=== PATIENT | male | born 1970 | race Caucasian/White ===

== ENCOUNTER 2018-01-11 09:33 | Emergency (ER) | payer OTHER ==
[~2018-01-11] VITALS: Ht 182.8 cm; Wt 90.7 kg
--- NOTE | ~2018-01-11 | EKG ---
[place], [place] ELECTROCARDIOGRAM REPORT NAME: EVANGELISTA CARDONA UNIT #: [id number] ROOM: DOCTOR: NAKUL TUTTLE MD BIRTHDATE: [birth year] DOS: 01/11/2018 TIME: 0939 hours. Normal sinus rhythm at 99 beats per minute. The tracing is normal. No previous tracing is available for comparison. NAKUL TUTTLE MD CM:EKGRPT:ELECTROCARDIOGRAM REPORT [id number] NAKUL TUTTLE MD
[2018-01-11 09:49] LABS: BASO % 0.4 % (0.0-1.0); EOS # 0.1 10*3/uL (0.0-0.4); EOS % 0.9 % (1.0-4.0); HEMATOCRIT 39.4 % (42.0-52.0); HEMOGLOBIN 12.9 g/dl (14.0-18.0); LYMPH # 2.3 10*3/uL (1.3-4.4); LYMPH % 34.6 % (27.0-41.0); MEAN CELL VOLUME 88.5 fl (80.0-94.0); MEAN CORPUSCULAR HGB CONC 32.7 g/dl (33.0-37.0); MEAN PLATELET VOLUME 9.6 fl (9.6-12.3); MONO # 0.5 10*3/uL (0.1-1.0); MONO % 7.9 % (3.0-9.0); NEUT # 3.8 10*3/uL (2.3-7.9); NEUT % 55.9 % (47.0-73.0); PLATELET COUNT AUTOMATED 269 10*3/uL (130-400); RED BLOOD COUNT 4.45 10*6/uL (4.50-5.90); RED CELL DISTRI WIDTH 12.6 % (0-14.5); WHITE BLOOD COUNT 6.7 10*3/uL (4.8-10.8)
[2018-01-11 09:57] LABS: ACT PARTIAL THROMBO TIME 24.7 SECONDS (20.8-31.5)
[2018-01-11 10:04] LABS: ALBUMIN 4.2 gm/dl (3.1-4.5); ALKALINE PHOSPHATASE 78 U/L (45-117); BUN 21 mg/dl (7-24); CHLORIDE 102 mmol/L (98-107); CREATININE 1.18 mg/dL (0.70-1.30); POTASSIUM 3.5 mmol/L (3.5-5.1); SGOT/AST 12 IU/L (3-35); SGPT/ALT 28 U/L (12-78); SODIUM 138 mmol/L (136-145); TOTAL PROTEIN 8.3 gm/dL (6.4-8.2)
[2018-01-11 10:09] LABS: TROPONIN I < 0.015 ng/ml (<0.045)
== END 2018-01-11 13:12 | disposition home or self-care (01) ==
LOC: ED 09:33
PROVIDERS: Emergency Medicine
DX: R07.89 Other chest pain (principal); M54.2 Cervicalgia; Z88.0 Allergy status to penicillin

== ENCOUNTER 2020-03-21 19:38 | Emergency (ER) | payer BC ==
[~2020-03-21] VITALS: Ht 182.8 cm; Wt 95.3 kg
[2020-03-21 20:31] LABS: BASO % 0.5 % (0.0-1.0); EOS # 0.1 10*3/uL (0.0-0.4); EOS % 1.3 % (1.0-4.0); HEMATOCRIT 37.7 % (42.0-52.0); LYMPH # 2.5 10*3/uL (1.3-4.4); LYMPH % 33.3 % (27.0-41.0); MEAN CELL VOLUME 88.3 fl (80.0-94.0); MEAN CORPUSCULAR HGB 28.6 pg (27.0-31.0); MEAN CORPUSCULAR HGB CONC 32.4 g/dl (33.0-37.0); MONO # 0.7 10*3/uL (0.1-1.0); MONO % 9.7 % (3.0-9.0); NEUT # 4.2 10*3/uL (2.3-7.9); NEUT % 54.9 % (47.0-73.0); PLATELET COUNT AUTOMATED 277 10*3/uL (130-400); RED BLOOD COUNT 4.27 10*6/uL (4.50-5.90); RED CELL DISTRI WIDTH 13.2 % (0-14.5); WHITE BLOOD COUNT 7.6 10*3/uL (4.8-10.8)
[2020-03-21 20:48] LABS: ALBUMIN 3.7 gm/dl (3.1-4.5); ALKALINE PHOSPHATASE 77 U/L (45-117); BUN 16 mg/dl (7-24); CHLORIDE 106 mmol/L (98-107); CREATININE 1.05 mg/dL (0.70-1.30); POTASSIUM 3.3 mmol/L (3.5-5.1); SGOT/AST 17 IU/L (3-35); SGPT/ALT 46 U/L (12-78); SODIUM 139 mmol/L (136-145)
[2020-03-21 20:49] LABS: TROPONIN I < 0.015 ng/ml (<0.045)
== END 2020-03-21 22:12 | disposition home or self-care (01) ==
LOC: ED 19:38
PROVIDERS: Physician Assistant
DX: R03.0 Elevated blood-pressure reading, without diagnosis of hypertension (principal); Z88.0 Allergy status to penicillin

== ENCOUNTER → 2020-04-12 | Outpatient (CLI) | payer BC | END | disposition home or self-care (01) | LOC: US 00:38 | DX: I10 Essential (primary) hypertension (principal); R73.03 Prediabetes ==

== ENCOUNTER 2020-11-03 14:11 | Inpatient (IN) | payer BC ==
[~2020-11-03] VITALS: Ht 182.8 cm; Wt 100.8 kg
[2020-11-03 14:29] VITALS: BP 123/81
[2020-11-03 15:40] LABS: ABG BASE EXCESS 0.1 mmol/L (-2.0-2.0); ARTERIAL BLOOD GAS PH 7.455 (7.35-7.45)
[2020-11-03 15:47] LABS: BASO % 0.1 % (0.0-1.0); HEMATOCRIT 35.7 % (42.0-52.0); LYMPH # 0.9 10*3/uL (1.3-4.4); LYMPH % 10.1 % (27.0-41.0); MEAN CELL VOLUME 88.6 fl (80.0-94.0); MEAN CORPUSCULAR HGB 27.8 pg (27.0-31.0); MEAN CORPUSCULAR HGB CONC 31.4 g/dl (33.0-37.0); MEAN PLATELET VOLUME 9.5 fl (9.6-12.3); MONO # 0.3 10*3/uL (0.1-1.0); NEUT # 7.3 10*3/uL (2.3-7.9); NEUT % 85.2 % (47.0-73.0); PLATELET COUNT AUTOMATED 254 10*3/uL (130-400); RED BLOOD COUNT 4.03 10*6/uL (4.50-5.90); RED CELL DISTRI WIDTH 13.4 % (0-14.5); WHITE BLOOD COUNT 8.6 10*3/uL (4.8-10.8)
[2020-11-03 16:04] LABS: BUN 9 mg/dl (7-24); CHLORIDE 108 mmol/L (98-107); CPK 538 U/L (39-308); CREATININE 1.04 mg/dL (0.70-1.30); LDH 442 U/L (87-241); POTASSIUM 3.1 mmol/L (3.5-5.1); SGOT/AST 42 IU/L (3-35); SGPT/ALT 36 U/L (12-78); SODIUM 139 mmol/L (136-145); TOTAL PROTEIN 7.7 gm/dL (6.4-8.2)
[2020-11-03 16:05] LABS: ALKALINE PHOSPHATASE 69 U/L (45-117); TROPONIN I < 0.015 ng/ml (<0.045)
[2020-11-03 16:40] VITALS: BP 126/80
[2020-11-03 17:20] VITALS: BP 147/87
--- NOTE | 2020-11-03 19:04 | NUR ---
ATTEMPTED TO CONTACT [facility] THEY STATE THEY WILL CALL BACK. DR. HERNANDEZ CONSULTED AND HE STATES TO ENCOURAGE THE PT TO PRONE AND LONG HE DOES NOT NEED ANY MORE OXYGEN HE DOES NOT NEED BIPAP. PT IS RESTING IN ROOM. NO SIGNS OF ACUTE DISTRESS NOTED AT THIS TIME.
[2020-11-03 19:05] VITALS: BP 132/60
[2020-11-03 20:29] VITALS: BP 140/86
--- NOTE | 2020-11-03 20:45 | NUR ---
PT O2 SAT DECREASED TO 89-90% ON 3L O2 NC.PT PLACED ON 5L O2 VIA NC.PT DID STATE HE WAS USING URINAL AT TIME OF DECREASE IN O2 SAT.WILL CONTINUE TO MONITOR.CURRENT O2 SAT ON 5L NC 93%.
--- NOTE | 2020-11-03 20:57 | NUR ---
PT PROVIDED BELONGINGS TO PT OF BLANKET, PILLOW ,CLOTHING AND GATORADE.PT REQUEST $120 FOWLER BE GIVEN TO HIS .ILSA BURT WITNESSED AMOUNT OF $120 GIVEN TO PT .
[2020-11-03 21:05] VITALS: BP 139/82
--- NOTE | 2020-11-03 21:50 | NUR ---
RESPIRATORY AT BEDSIDE TO PLACE PT ON HIGH FLOW CANULA AT THIS TIME.
--- NOTE | 2020-11-03 22:00 | NUR ---
Pt placed on a 10L HFNC. SPO2 94%
--- NOTE | 2020-11-03 22:04 | NUR ---
PT PLACED IN HOSPITAL BED. PT GETS VERY SOB WITH ANY EXURTION PULSE OX DROPPED TO 88% PT STATES HE FEELS VERY SOB. RESP CALLED AND PLACED PT ON A MASK AT 10 LITERS. CALL LIGHT IN REACH .PT HAS NO OTHER COMPLAINTS MELONIE TRUJILLO RN.
--- NOTE | 2020-11-03 23:17 | NUR ---
PTS PULSE OX SHOWING 91% ON 10 LITERS . RATE INCREASED TO 15 LITERS . NOW AT 95% . MELONIE TRUJILLO RN.
[2020-11-04 02:24] VITALS: BP 133/60
--- NOTE | 2020-11-04 04:00 | NUR ---
Pt requiring more than 15L HFNC to stay >94%. ABG's drawn on 15L HFNC and sent to the lab. Pt placed on BiPap 14/10 and FiO2 60%. Encouraged pt to prone in the bed. SpO2 96%. ABG in 2 hours.
[2020-11-04 04:09] LABS: ABG BASE EXCESS -1.1 mmol/L (-2.0-2.0); ARTERIAL BLOOD GAS PH 7.408 (7.35-7.45)
--- NOTE | 2020-11-04 05:00 | NUR ---
PT SLEEPING BIPAP INTACT. MELONIE TRUJILLO RN.
--- NOTE | 2020-11-04 06:00 | NUR ---
PT REMAINS SLEEPING CALL LIGHT IN REACH MELONIE TRUJILLO RN.
[2020-11-04 06:24] LABS: ALBUMIN 2.7 gm/dl (3.1-4.5); ALKALINE PHOSPHATASE 71 U/L (45-117); BUN 13 mg/dl (7-24); CHLORIDE 107 mmol/L (98-107); CHOLESTEROL 123 mg/dL (<200); CREATININE 0.97 mg/dL (0.70-1.30); HDL CHOLESTEROL 45 mg/dl (40-60); LDH 434 U/L (87-241); LDL CHOLESTEROL 56 mg/dL (9-159); POTASSIUM 3.5 mmol/L (3.5-5.1); SGOT/AST 41 IU/L (3-35); SGPT/ALT 37 U/L (12-78); SODIUM 139 mmol/L (136-145); TOTAL PROTEIN 7.8 gm/dL (6.4-8.2); TRIGLYCERIDES 111 mg/dl (<150); VLDL CHOLESTEROL 22 mg/dL (6-40)
[2020-11-04 06:26] LABS: CPK 542 U/L (39-308); FREE T4 1.13 ng/dl (0.76-1.46)
[2020-11-04 06:32] LABS: THYROID STIM HORMONE (HS) 0.156 uIU/ml (0.358-4.75)
[2020-11-04 06:49] LABS: HEMATOCRIT 34.9 % (42.0-52.0); LYMPH # 0.6 10*3/uL (1.3-4.4); LYMPH % 9.2 % (27.0-41.0); MEAN CELL VOLUME 88.1 fl (80.0-94.0); MEAN CORPUSCULAR HGB CONC 31.8 g/dl (33.0-37.0); MEAN PLATELET VOLUME 9.7 fl (9.6-12.3); MONO # 0.3 10*3/uL (0.1-1.0); MONO % 4.3 % (3.0-9.0); NEUT # 5.3 10*3/uL (2.3-7.9); NEUT % 85.9 % (47.0-73.0); PLATELET COUNT AUTOMATED 276 10*3/uL (130-400); RED BLOOD COUNT 3.96 10*6/uL (4.50-5.90); RED CELL DISTRI WIDTH 13.2 % (0-14.5); WHITE BLOOD COUNT 6.2 10*3/uL (4.8-10.8)
[2020-11-04 07:28] LABS: FERRITIN 1095.3 ng/mL (22.0-322.0); VITAMIN D, 25-HYDROXY 11.8 ng/mL (30-100)
[2020-11-04 08:18] LABS: ABG BASE EXCESS -0.7 mmol/L (-2.0-2.0); ARTERIAL BLOOD GAS PH 7.426 (7.35-7.45)
[2020-11-04 08:26] VITALS: BP 120/74
--- NOTE | 2020-11-04 08:40 | NUR ---
THE PATIENT WAS PLACED ON KETTLE CHIPPER PER ORDER. VITALS WERE UPDATED. CALL LIGHT IS ON THE BED BESIDE THE PATIENT
[2020-11-04 09:10] LABS: ACT PARTIAL THROMBO TIME 35.3 SECONDS (20.0-32.1)
[2020-11-04 09:40] VITALS: BP 128/65
[2020-11-04] MEDS ORDERED: IRBESARTAN75 M1 PO (10:15)
[2020-11-04] MEDS ORDERED: SERTRALINE HYDR50 MG PO (10:15)
--- NOTE | 2020-11-04 12:02 | NUR ---
M 42. CALL[address] DR CALHOUN AND HE ORDERED 50% DEXTROSE TO BE GIVEN.
--- NOTE | 2020-11-04 12:07 | NUR ---
THE PATIENT GAVE VERBAL CONSENT TO SPEAK WITH HIS MOTHER. I DID UPDATE HER THEN TRANSFERED THE CALL INTO THE ROOM FOR THE PATIENT TO SPEAK WITH HER
--- NOTE | 2020-11-04 12:14 | NUR ---
RESPIRATORY IS IN THE ROOM WITH THE PATIENT
--- NOTE | 2020-11-04 14:01 | NUR ---
I LET THE PATIENT KNOW HE HAS A ROOM ASSINGMENT AND THAT I AM JUST WAITING FOR THE ROOM TO BE READY
--- NOTE | 2020-11-04 14:13 | NUR ---
I CALLED TO SEE IF ICU WAS READY FOR THE PATIENT. I WAS ADVISED THE PREVIOUS PATIENT JUST LEFT THE ROOM.
--- NOTE | 2020-11-04 15:26 | NUR ---
I CALLED ICU AND WAS ADVISED THAT THEY HAVE CALLED HOUSE KEEPING AND THEY HAVE NOT CLEANED THE ROOM YET. I CALLED THE NURSING SUPERVISIOR AND ASKED IF THERE WAS ANYTHING SHE COULD DO I HAVE HAD A ROOM ASSIGNMENT FOR THIS PATIENT FOR AN HOUR AND 45 MINUTES
--- NOTE | 2020-11-04 16:40 | NUR ---
A 50, admitted to [facility], under the services of EVANGELISTA Garcia DO with a diagnosis of Suspected covid. Chief complaint is shortness of breath. Patient arrived via bed from ER. Monitor applied. Initial assessment completed. Vital signs taken and recorded. EVANGELISTA GARCIA DO notified of admission to the unit. Orders received. See assessment for past medical history, medications and allergies. Patient and/or family oriented to unit. [facility] visitation policy reviewed. Clothing/patient valuable form completed. OSMANI BLACKMAN
--- NOTE | 2020-11-04 18:00 | NUR ---
Patient up to bedside, pulse ox down to 88%. Told patient he has to wear bipap, and he stated can I have just a few minutes he wanted to get a snack and talk to his . I stated I would watch on the monitor and if he began to drop again I would be in to put him on bipap. Patient ate and made his phone call, pulse ox stayed around 93%, patient than proned himself. Pulse ox up to 97%, patient stated until blood gases were drawn and put back on bipap.
--- NOTE | 2020-11-04 19:09 | NUR ---
24 HR chart check completed.
[2020-11-04 20:00] VITALS: BP 150/84
[2020-11-04 21:49] LABS: ABG BASE EXCESS -1.8 mmol/L (-2.0-2.0); ARTERIAL BLOOD GAS PH 7.465 (7.35-7.45)
[2020-11-05] VITALS: BP 144/76
[2020-11-05 04:00] VITALS: BP 114/64
--- NOTE | 2020-11-05 06:06 | NUR ---
Patient has been wearing bipap all night and been in the prone position. When awoke for moring labs patient states he slept good and was hoping for good results on his abg's. Patient has no complaints at this time.
[2020-11-05 06:31] LABS: HEMATOCRIT 34.5 % (42.0-52.0); LYMPH # 0.9 10*3/uL (1.3-4.4); LYMPH % 9.1 % (27.0-41.0); MEAN CORPUSCULAR HGB 27.7 pg (27.0-31.0); MEAN CORPUSCULAR HGB CONC 32.2 g/dl (33.0-37.0); MEAN PLATELET VOLUME 9.7 fl (9.6-12.3); MONO # 0.4 10*3/uL (0.1-1.0); MONO % 4.1 % (3.0-9.0); NEUT # 8.9 10*3/uL (2.3-7.9); NEUT % 86.3 % (47.0-73.0); PLATELET COUNT AUTOMATED 338 10*3/uL (130-400); RED BLOOD COUNT 4.01 10*6/uL (4.50-5.90); RED CELL DISTRI WIDTH 13.2 % (0-14.5); WHITE BLOOD COUNT 10.3 10*3/uL (4.8-10.8)
[2020-11-05 07:01] LABS: CHLORIDE 112 mmol/L (98-107); POTASSIUM 3.6 mmol/L (3.5-5.1); SODIUM 143 mmol/L (136-145)
[2020-11-05 07:07] LABS: ALBUMIN 2.7 gm/dl (3.1-4.5); ALKALINE PHOSPHATASE 71 U/L (45-117); CPK 489 U/L (39-308); CREATININE 0.95 mg/dL (0.70-1.30); LDH 442 U/L (87-241); SGOT/AST 39 IU/L (3-35); SGPT/ALT 37 U/L (12-78); TOTAL PROTEIN 7.6 gm/dL (6.4-8.2)
[2020-11-05 07:45] LABS: BUN 24 mg/dl (7-24)
[2020-11-05 08:00] VITALS: BP 114/64
--- NOTE | 2020-11-05 09:07 | NUR ---
TOOK PT OFF BIPAP TO EAT AND PLACED ON 15LHFNC
[2020-11-05 09:11] LABS: ABG BASE EXCESS -0.8 mmol/L (-2.0-2.0); ARTERIAL BLOOD GAS PH 7.464 (7.35-7.45)
--- NOTE | 2020-11-05 09:38 | NUR ---
Bioanalyst spoke to patient's via phone. Patient lives at home with his . There are 0 steps in the home. Physician: Gonzalo Hastings [facility]acy: [facility] Home health services: none Patient's level of ADLs: INDEPENDENT Patient has working utilities: yes DME: none Follow-up physician's appointment after d/c: will be made by the hospitalist nurse director upon discharge Does patient want to access PORTAL?: no Discharge plan discussed with patient's , Olivia. He lives at home with her. He is independent in his ADLs and ambulation. He works as a nurse. Discussed home health care services and she declines. CM will continue to follow for any discharge planning needs. When medically stable he will be discharged to home. His will provide transportation on discharge. DAVID SCHUSTER
[2020-11-05 12:00] VITALS: BP 130/73
[2020-11-05 14:57] LABS: ABG BASE EXCESS -4.1 mmol/L (-2.0-2.0); ARTERIAL BLOOD GAS PH 7.416 (7.35-7.45)
[2020-11-05 16:00] VITALS: BP 138/80
[2020-11-05 20:00] VITALS: BP 112/73
--- NOTE | 2020-11-05 22:57 | NUR ---
Patient on bipap and proning self. No signs of distress. Patient states he feels good and has no compliants. Will continue to monitor.
[2020-11-06] VITALS: BP 118/60
[2020-11-06 04:00] VITALS: BP 92/63
[2020-11-06 06:26] LABS: BASO % 0.1 % (0.0-1.0); HEMATOCRIT 33.6 % (42.0-52.0); LYMPH # 0.8 10*3/uL (1.3-4.4); LYMPH % 8.2 % (27.0-41.0); MEAN CELL VOLUME 85.5 fl (80.0-94.0); MEAN CORPUSCULAR HGB 27.7 pg (27.0-31.0); MEAN CORPUSCULAR HGB CONC 32.4 g/dl (33.0-37.0); MEAN PLATELET VOLUME 9.6 fl (9.6-12.3); MONO # 0.7 10*3/uL (0.1-1.0); MONO % 7.1 % (3.0-9.0); NEUT # 8.2 10*3/uL (2.3-7.9); PLATELET COUNT AUTOMATED 369 10*3/uL (130-400); RED BLOOD COUNT 3.93 10*6/uL (4.50-5.90); RED CELL DISTRI WIDTH 13.2 % (0-14.5); WHITE BLOOD COUNT 9.8 10*3/uL (4.8-10.8)
[2020-11-06 06:40] LABS: ALKALINE PHOSPHATASE 73 U/L (45-117); BUN 33 mg/dl (7-24); CHLORIDE 113 mmol/L (98-107); CPK 483 U/L (39-308); CREATININE 1.08 mg/dL (0.70-1.30); LDH 452 U/L (87-241); POTASSIUM 4.4 mmol/L (3.5-5.1); SGOT/AST 54 IU/L (3-35); SGPT/ALT 59 U/L (12-78); SODIUM 143 mmol/L (136-145); TOTAL PROTEIN 7.5 gm/dL (6.4-8.2)
[2020-11-06 08:00] VITALS: BP 105/72
[2020-11-06 09:15] LABS: ARTERIAL BLOOD GAS PH 7.459 (7.35-7.45)
--- NOTE | 2020-11-06 10:50 | NUR ---
Awake , alert and oriented. Mostly self proning. Discussed covid care. pt. expressed interest and is very compliant w/ proning. OFF bi-Pap for meals only.
[2020-11-06 12:00] VITALS: BP 100/80
[2020-11-06 16:00] VITALS: BP 123/84
[2020-11-06 16:12] LABS: ABG BASE EXCESS -2.5 mmol/L (-2.0-2.0); ARTERIAL BLOOD GAS PH 7.41 (7.35-7.45)
--- NOTE | 2020-11-06 18:07 | NUR ---
IV leaking at site. Dc'd and re-started to [facility]
[2020-11-06 20:00] VITALS: BP 106/62
[2020-11-07] VITALS: BP 118/71
[2020-11-07 04:00] VITALS: BP 100/60
[2020-11-07 06:30] LABS: HEMATOCRIT 33.9 % (42.0-52.0); LYMPH # 0.9 10*3/uL (1.3-4.4); LYMPH % 11.3 % (27.0-41.0); MEAN CELL VOLUME 86.3 fl (80.0-94.0); MEAN CORPUSCULAR HGB 27.5 pg (27.0-31.0); MEAN CORPUSCULAR HGB CONC 31.9 g/dl (33.0-37.0); MEAN PLATELET VOLUME 9.5 fl (9.6-12.3); MONO # 0.4 10*3/uL (0.1-1.0); NEUT # 6.7 10*3/uL (2.3-7.9); NEUT % 83.5 % (47.0-73.0); PLATELET COUNT AUTOMATED 388 10*3/uL (130-400); RED BLOOD COUNT 3.93 10*6/uL (4.50-5.90); WHITE BLOOD COUNT 8.1 10*3/uL (4.8-10.8)
[2020-11-07 06:46] LABS: ALBUMIN 2.8 gm/dl (3.1-4.5); BUN 35 mg/dl (7-24); CHLORIDE 111 mmol/L (98-107); CREATININE 0.91 mg/dL (0.70-1.30); POTASSIUM 4.3 mmol/L (3.5-5.1); SGOT/AST 171 IU/L (3-35); SGPT/ALT 285 U/L (12-78); SODIUM 141 mmol/L (136-145); TOTAL PROTEIN 6.8 gm/dL (6.4-8.2)
[2020-11-07 06:49] LABS: ALKALINE PHOSPHATASE 99 U/L (45-117); LDH 524 U/L (87-241)
[2020-11-07 08:00] VITALS: BP 110/67
[2020-11-07 08:19] LABS: ABG BASE EXCESS -0.4 mmol/L (-2.0-2.0); ARTERIAL BLOOD GAS PH 7.447 (7.35-7.45)
--- NOTE | 2020-11-07 08:34 | NUR ---
Awake and alert. Self proning. No c/o.
--- NOTE | 2020-11-07 10:23 | NUR ---
Mother called in and update was given.
[2020-11-07 12:00] VITALS: BP 117/68
--- NOTE | 2020-11-07 13:10 | NUR ---
Dr. Sanchez in to [facility] [facility] [place]g and a-line removal. Dr. Diaz in and ok w/ transfer out. Commercial Title Examiner aware.
--- NOTE | 2020-11-07 15:00 | NUR ---
ASSUMED CARE OF PATIENT. PT VOICES NO COMPLAINTS. CALL LIGHT IN REACH
[2020-11-07 15:06] LABS: ABG BASE EXCESS -3.2 mmol/L (-2.0-2.0); ARTERIAL BLOOD GAS PH 7.408 (7.35-7.45)
[2020-11-07 16:00] VITALS: BP 116/88
--- NOTE | 2020-11-07 18:00 | NUR ---
PT LYING IN BED. O2 INTACT. CALL LIGHT IN REACH
[2020-11-07 20:00] VITALS: BP 131/66
--- NOTE | 2020-11-07 21:24 | NUR ---
PT ON BIPAP AT THIS TIME
--- NOTE | 2020-11-07 22:30 | NUR ---
PT LYING IN BED AT THIS TIME, NO COMPLAINTS.
[2020-11-08] VITALS: BP 115/79
--- NOTE | 2020-11-08 00:15 | NUR ---
PT PULE OX 85% ON MONITOR. IN TO SEE PT. BIPAP IN PLACE. NO LEAK, PT LYING IN BED. RESPIRATORY NOTIFIED. IN TO SEE PT AT THIS TIME.
--- NOTE | 2020-11-08 00:45 | NUR ---
PT PULSE OX BACK TO 95%. BIPAP IN PLACE. PT VOICES NO COMPLAINTS
[2020-11-08 00:54] LABS: ABG BASE EXCESS -0.6 mmol/L (-2.0-2.0); ARTERIAL BLOOD GAS PH 7.433 (7.35-7.45)
[2020-11-08 06:43] LABS: EOS % 0.5 % (1.0-4.0); HEMATOCRIT 34.3 % (42.0-52.0); LYMPH # 1.6 10*3/uL (1.3-4.4); LYMPH % 26.5 % (27.0-41.0); MEAN CELL VOLUME 85.5 fl (80.0-94.0); MEAN CORPUSCULAR HGB 27.2 pg (27.0-31.0); MEAN CORPUSCULAR HGB CONC 31.8 g/dl (33.0-37.0); MEAN PLATELET VOLUME 9.1 fl (9.6-12.3); MONO # 0.4 10*3/uL (0.1-1.0); MONO % 6.3 % (3.0-9.0); NEUT # 4.1 10*3/uL (2.3-7.9); NEUT % 66.1 % (47.0-73.0); PLATELET COUNT AUTOMATED 362 10*3/uL (130-400); RED BLOOD COUNT 4.01 10*6/uL (4.50-5.90); RED CELL DISTRI WIDTH 12.8 % (0-14.5); WHITE BLOOD COUNT 6.2 10*3/uL (4.8-10.8)
[2020-11-08 07:29] LABS: ALBUMIN 2.7 gm/dl (3.1-4.5); BUN 33 mg/dl (7-24); CHLORIDE 111 mmol/L (98-107); POTASSIUM 4.1 mmol/L (3.5-5.1); SGOT/AST 50 IU/L (3-35); SGPT/ALT 175 U/L (12-78); SODIUM 141 mmol/L (136-145)
[2020-11-08 07:33] LABS: ALKALINE PHOSPHATASE 59 U/L (45-117); CREATININE 0.83 mg/dL (0.70-1.30); TOTAL PROTEIN 5.9 gm/dL (6.4-8.2)
[2020-11-08 08:00] VITALS: BP 106/70
--- NOTE | 2020-11-08 10:00 | NUR ---
BIPAP IN USE. POX 95%. WILL CONTINUE TO MONITOR. CALL LIGHT WITHIN REACH. VSS.
[2020-11-08 12:00] VITALS: BP 115/71
[2020-11-08 16:00] VITALS: BP 101/57
[2020-11-08 20:00] VITALS: BP 107/76
--- NOTE | 2020-11-08 20:42 | NUR ---
24 HR chart check completed.
--- NOTE | 2020-11-08 21:00 | NUR ---
SELF PRONING. RESPIRATIONS EASY. LUNGS DIMINISHED. PULSE OX 96% WITH BI-PAP IN PLACE. LOOSE COUGH. CALL LIGHT WITHIN REACH. NO VOICED COMPLAINTS
[2020-11-09] VITALS: BP 126/80
--- NOTE | 2020-11-09 | NUR ---
SLEEPING WITH BI-PAP IN USE. RESPIRATIONS EASY. VSS. PULSE OX 98% ON BI-PAP. CALL LIGHT WITHIN REACH.
--- NOTE | 2020-11-09 04:00 | NUR ---
SELF PRONING. PULSE OX 98% BI-PAP
--- NOTE | 2020-11-09 06:00 | NUR ---
RESTED THROUGHOUT NIGHT WITH NO ACUTE DISTRESS NOTED. RESPIRATIONS EASY. BI-PAP IN USE WITH CONT PULSE OX MAINTAINED. CALL LIGHT WITHIN REACH. NO VOICED COMPLAINTS THIS SHIFT
[2020-11-09 06:46] LABS: BASO % 0.1 % (0.0-1.0); EOS % 0.1 % (1.0-4.0); HEMATOCRIT 36.5 % (42.0-52.0); LYMPH # 1.1 10*3/uL (1.3-4.4); LYMPH % 10.2 % (27.0-41.0); MEAN CELL VOLUME 86.1 fl (80.0-94.0); MEAN CORPUSCULAR HGB 27.6 pg (27.0-31.0); MEAN CORPUSCULAR HGB CONC 32.1 g/dl (33.0-37.0); MEAN PLATELET VOLUME 9.5 fl (9.6-12.3); MONO # 0.5 10*3/uL (0.1-1.0); MONO % 4.3 % (3.0-9.0); NEUT # 8.9 10*3/uL (2.3-7.9); NEUT % 84.4 % (47.0-73.0); PLATELET COUNT AUTOMATED 398 10*3/uL (130-400); RED BLOOD COUNT 4.24 10*6/uL (4.50-5.90); RED CELL DISTRI WIDTH 12.8 % (0-14.5); WHITE BLOOD COUNT 10.6 10*3/uL (4.8-10.8)
[2020-11-09 07:02] LABS: ALBUMIN 2.8 gm/dl (3.1-4.5); ALKALINE PHOSPHATASE 63 U/L (45-117); BUN 25 mg/dl (7-24); CHLORIDE 109 mmol/L (98-107); CREATININE 0.87 mg/dL (0.70-1.30); POTASSIUM 4.3 mmol/L (3.5-5.1); SGOT/AST 29 IU/L (3-35); SGPT/ALT 134 U/L (12-78); SODIUM 141 mmol/L (136-145); TOTAL PROTEIN 6.8 gm/dL (6.4-8.2)
[2020-11-09 08:00] VITALS: BP 108/64
[2020-11-09 12:00] VITALS: BP 96/62
[2020-11-09 16:00] VITALS: BP 113/62
[2020-11-09 16:39] LABS: ABG BASE EXCESS -1.1 mmol/L (-2.0-2.0); ARTERIAL BLOOD GAS PH 7.423 (7.35-7.45)
[2020-11-09 20:00] VITALS: BP 125/72
--- NOTE | 2020-11-09 20:45 | NUR ---
PT TOLERATED ROUTINE MED WITH NO PROBLEM. NO C/O AT THIS TIME. OXYGEN IN USE. CALL LIGHT IN REACH. SEE SHIFT ASSESSMENT.
--- NOTE | 2020-11-09 22:28 | NUR ---
PT TOLERATED NEW MED. NO C/O AT THIS TIME. BIPAP IN USE. CALL LIGHT IN REACH.
[2020-11-10] VITALS: BP 128/68
--- NOTE | 2020-11-10 00:25 | NUR ---
RESTING IN BED WITH EYES CLOSED. RESP-EASY AND REGULAR. BIPAP IN USE. CALL LIGHT IN REACH. SEE SHIFT ASSESSMENT.
--- NOTE | 2020-11-10 06:00 | NUR ---
RESTING IN BED WITH EYES CLOSED. RESP-EASY AND REGULAR. OXYGEN IN USE. CALL LIGHT IN REACH.
[2020-11-10 06:21] LABS: BASO % 0.1 % (0.0-1.0); EOS % 0.2 % (1.0-4.0); HEMATOCRIT 34.7 % (42.0-52.0); LYMPH # 1.2 10*3/uL (1.3-4.4); LYMPH % 10.3 % (27.0-41.0); MEAN CELL VOLUME 87.2 fl (80.0-94.0); MEAN CORPUSCULAR HGB 27.9 pg (27.0-31.0); MEAN PLATELET VOLUME 9.6 fl (9.6-12.3); MONO # 0.6 10*3/uL (0.1-1.0); MONO % 5.4 % (3.0-9.0); NEUT # 9.4 10*3/uL (2.3-7.9); NEUT % 82.6 % (47.0-73.0); PLATELET COUNT AUTOMATED 394 10*3/uL (130-400); RED BLOOD COUNT 3.98 10*6/uL (4.50-5.90); RED CELL DISTRI WIDTH 12.8 % (0-14.5); WHITE BLOOD COUNT 11.4 10*3/uL (4.8-10.8)
[2020-11-10 06:38] LABS: ALBUMIN 2.7 gm/dl (3.1-4.5); ALKALINE PHOSPHATASE 53 U/L (45-117); BUN 25 mg/dl (7-24); CHLORIDE 105 mmol/L (98-107); CREATININE 0.95 mg/dL (0.70-1.30); POTASSIUM 4.5 mmol/L (3.5-5.1); SGOT/AST 21 IU/L (3-35); SGPT/ALT 97 U/L (12-78); SODIUM 139 mmol/L (136-145); TOTAL PROTEIN 6.5 gm/dL (6.4-8.2)
[2020-11-10 08:00] VITALS: BP 97/61
[2020-11-10 12:00] VITALS: BP 111/71
--- NOTE | 2020-11-10 13:30 | NUR ---
PT REQUESTED TO COME OFF BIPAP. PLACED ON 8 L HI KEZIA CANNULA.
[2020-11-10 16:00] VITALS: BP 100/59
[2020-11-10 20:00] VITALS: BP 124/68
--- NOTE | 2020-11-10 20:38 | NUR ---
24 HR chart check completed.
--- NOTE | 2020-11-10 21:30 | NUR ---
AWAKE, WATCHING TV WITH NO DISTRESS NOTED. RESPIRATIONS EASY. LUNGS DIMINISHED. PULSE OX 93% 8L HIGH FLOW AND CONT PULSE OX MAINTAINED. CLAIMS INFREQUENT COUGH. CALL LIGHT WITHIN REACH. NO VOICED COMPLAINTS
--- NOTE | 2020-11-11 | NUR ---
SLEEPING, PRONE POSITION. RESPIRATIONS EASY. PULSE OX 96% ON BI-PAP WITH CONT PULSE OX MAINTAINED. CALL LIGHT WITHIN REACH.
[2020-11-11 01:00] VITALS: BP 109/60
--- NOTE | 2020-11-11 04:00 | NUR ---
PRONING. PULSE OX 99% BI-PAP. CALL LIGHT WITHIN REACH
--- NOTE | 2020-11-11 06:00 | NUR ---
SLEPT THROUGHOUT NIGHT WITH NO DISTRESS NOTED. RESPIRATIONS EASY. BI-PAP IN USE. CALL LIGHT WITHIN REACH. NO VOICED COMPLAINTS THIS SHIFT
[2020-11-11 08:00] VITALS: BP 105/66
--- NOTE | 2020-11-11 09:00 | NUR ---
case management speaks with patient by phone, he will return home when dischaged. patient will be checked for home oxygen requirements prior to discharge, case management will follow
[2020-11-11 09:08] LABS: ABG BASE EXCESS 1.2 mmol/L (-2.0-2.0); ARTERIAL BLOOD GAS PH 7.436 (7.35-7.45)
[2020-11-11 12:00] VITALS: BP 112/67
[2020-11-11 16:00] VITALS: BP 104/57
[2020-11-11 20:00] VITALS: BP 104/61
[2020-11-12] VITALS: BP 113/56
[2020-11-12 06:21] LABS: BASO % 0.1 % (0.0-1.0); HEMATOCRIT 36.8 % (42.0-52.0); LYMPH # 0.9 10*3/uL (1.3-4.4); LYMPH % 7.4 % (27.0-41.0); MEAN CORPUSCULAR HGB 27.9 pg (27.0-31.0); MEAN CORPUSCULAR HGB CONC 32.1 g/dl (33.0-37.0); MEAN PLATELET VOLUME 9.7 fl (9.6-12.3); MONO # 0.6 10*3/uL (0.1-1.0); MONO % 4.9 % (3.0-9.0); NEUT # 10.2 10*3/uL (2.3-7.9); NEUT % 86.2 % (47.0-73.0); PLATELET COUNT AUTOMATED 393 10*3/uL (130-400); RED BLOOD COUNT 4.23 10*6/uL (4.50-5.90); RED CELL DISTRI WIDTH 13.3 % (0-14.5); WHITE BLOOD COUNT 11.8 10*3/uL (4.8-10.8)
[2020-11-12 06:36] LABS: ALBUMIN 2.8 gm/dl (3.1-4.5); ALKALINE PHOSPHATASE 54 U/L (45-117); BUN 26 mg/dl (7-24); CHLORIDE 104 mmol/L (98-107); CREATININE 0.86 mg/dL (0.70-1.30); LDH 286 U/L (87-241); POTASSIUM 4.4 mmol/L (3.5-5.1); SGOT/AST 14 IU/L (3-35); SGPT/ALT 66 U/L (12-78); SODIUM 138 mmol/L (136-145); TOTAL PROTEIN 6.5 gm/dL (6.4-8.2)
[2020-11-12 08:00] VITALS: BP 103/67
[2020-11-12 08:20] LABS: ABG BASE EXCESS 1.7 mmol/L (-2.0-2.0); ARTERIAL BLOOD GAS PH 7.441 (7.35-7.45)
--- NOTE | 2020-11-12 09:00 | NUR ---
patient will return home when discharged, no home needs at this time
[2020-11-12 12:00] VITALS: BP 110/56
[2020-11-12 16:00] VITALS: BP 130/68
--- NOTE | 2020-11-12 16:25 | NUR ---
PT WAS ASSESSED FOR HOME OXYGEN. PT QUALIFIES. PT AT REST SPO2 91% RA, HR 95, B/P 110/56, RR 18 PT AMBULATED SPO2 80% PLACED PT ON 2LNC, SPO2 85-87%, INCREASED FIO2 TO 3LNC, SPO2 88-89%, INCREASED FIO2 TO 4LNC SPO2 91-93% PT AT REST 94% 4LNC, HR 98, B/P 130/68, RR 20 RN NOTIFIED AND NOTIFIED
[2020-11-12 20:00] VITALS: BP 133/77
[2020-11-13] VITALS: BP 97/53
[2020-11-13 05:47] LABS: ALBUMIN 2.9 gm/dl (3.1-4.5); ALKALINE PHOSPHATASE 59 U/L (45-117); BUN 24 mg/dl (7-24); CHLORIDE 103 mmol/L (98-107); CREATININE 0.95 mg/dL (0.70-1.30); LDH 240 U/L (87-241); POTASSIUM 4.1 mmol/L (3.5-5.1); SGOT/AST 10 IU/L (3-35); SGPT/ALT 57 U/L (12-78); SODIUM 138 mmol/L (136-145); TOTAL PROTEIN 6.6 gm/dL (6.4-8.2)
[2020-11-13 06:00] LABS: HEMATOCRIT 36.1 % (42.0-52.0); MEAN CELL VOLUME 87.4 fl (80.0-94.0); MEAN CORPUSCULAR HGB 28.1 pg (27.0-31.0); MEAN CORPUSCULAR HGB CONC 32.1 g/dl (33.0-37.0); MEAN PLATELET VOLUME 9.9 fl (9.6-12.3); PLATELET COUNT AUTOMATED 403 10*3/uL (130-400); RED BLOOD COUNT 4.13 10*6/uL (4.50-5.90); RED CELL DISTRI WIDTH 13.6 % (0-14.5); WHITE BLOOD COUNT 17.2 10*3/uL (4.8-10.8)
[2020-11-13 07:05] LABS: PLATELET SUFFICIENCY HIGH (NORMAL); TOTAL CELLS COUNTED 100 #CELLS
[2020-11-13 08:00] VITALS: BP 118/67
--- NOTE | 2020-11-13 08:53 | NUR ---
PT CALLED IN, PASSWORD VERIFIED. PT ASKED ABOUT HOME O2. PARKING ASSISTANT EXPLAINED ONCE SCRIPT IS RECEIVED. CM WOULD FAX IT TO [facility] FOR A PORTABLE TANK TO BE BROUGHT TO THIS FACILITY. PARKING ASSISTANT EXPLAINED ONCE SCRIPT IS RECEIVED IT WILL BE SENT/ORDERED. PTS STATES SHE WILL TRANSPORT AT DISCHARGE. CM NEEDS HOME O2 SCRIPT. PARKING ASSISTANT NOTIFIED RN HOSPITALIST COORDINATOR
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
[2020-11-13] MEDS ORDERED: XARE20MG PO (10:29)
[2020-11-13] MEDS ORDERED: VITAMIN D350 MC2 PO (10:29)
[2020-11-13 12:00] VITALS: BP 113/71
--- NOTE | 2020-11-13 12:55 | NUR ---
Discharge instructions reviewed with patient. Patient receptive and verbalizes understanding. Follow-up care arranged. Written instructions given to patient. Pt given o2 tank and instructed on use.
--- NOTE | 2020-11-13 13:38 | NUR ---
Pt here out front to pick him up. Pt dc via wheelchair with belongings.
== END 2020-11-13 13:38 | disposition home or self-care (01) | DRG 177 ==
LOC: ED 14:11 → EDHOLD 16:42 → ICCU 16:42 → 4E 11-07 17:04
PROVIDERS: Emergency Medicine; Hospitalist; Internal Medicine Critical Care Medicine; Student in an Organized Health Care Education/Training Program; ADMIT Emergency Medicine; ATTEND Emergency Medicine
PROC: 5A0935A Assistance with Respiratory Ventilation, Less than 24 Consecutive Hours, High Flow/Velocity Cannula (ICD-10-PCS; principal; 2020-11-03)
PROC: 5A0935A Assistance with Respiratory Ventilation, Less than 24 Consecutive Hours, High Flow/Velocity Cannula (ICD-10-PCS; 2020-11-04)
PROC: 5A09357 Assistance with Respiratory Ventilation, Less than 24 Consecutive Hours, Continuous Positive Airway Pressure (ICD-10-PCS; 2020-11-04)
PROC: 5A09457 Assistance with Respiratory Ventilation, 24-96 Consecutive Hours, Continuous Positive Airway Pressure (ICD-10-PCS; 2020-11-04)
PROC: 03HY33Z Insertion of Infusion Device into Upper Artery, Percutaneous Approach (ICD-10-PCS; 2020-11-04)
PROC: B34HZZZ Ultrasonography of Right Upper Extremity Arteries (ICD-10-PCS; 2020-11-04)
PROC: XW033E5 Introduction of Remdesivir Anti-infective into Peripheral Vein, Percutaneous Approach, New Technology Group 5 (ICD-10-PCS; 2020-11-05)
PROC: 5A0935A Assistance with Respiratory Ventilation, Less than 24 Consecutive Hours, High Flow/Velocity Cannula (ICD-10-PCS; 2020-11-08)
PROC: 5A09357 Assistance with Respiratory Ventilation, Less than 24 Consecutive Hours, Continuous Positive Airway Pressure (ICD-10-PCS; 2020-11-08)
PROC: 5A0935A Assistance with Respiratory Ventilation, Less than 24 Consecutive Hours, High Flow/Velocity Cannula (ICD-10-PCS; 2020-11-10)
PROC: 5A09357 Assistance with Respiratory Ventilation, Less than 24 Consecutive Hours, Continuous Positive Airway Pressure (ICD-10-PCS; 2020-11-10)
PROC: 5A09357 Assistance with Respiratory Ventilation, Less than 24 Consecutive Hours, Continuous Positive Airway Pressure (ICD-10-PCS; 2020-11-11)
PROC: 5A09357 Assistance with Respiratory Ventilation, Less than 24 Consecutive Hours, Continuous Positive Airway Pressure (ICD-10-PCS; 2020-11-13)
DX: U07.1 COVID-19 (principal); J96.01 Acute respiratory failure with hypoxia; J96.02 Acute respiratory failure with hypercapnia; E44.0 Moderate protein-calorie malnutrition; D68.59 Other primary thrombophilia; E83.39 Other disorders of phosphorus metabolism; F32.9 Major depressive disorder, single episode, unspecified; G40.909 Epilepsy, unspecified, not intractable, without status epilepticus; D64.9 Anemia, unspecified; E66.9 Obesity, unspecified; I10 Essential (primary) hypertension; E83.41 Hypermagnesemia; R73.9 Hyperglycemia, unspecified; R74.01 Elevation of levels of liver transaminase levels; Z68.25 Body mass index [BMI] 25.0-25.9, adult; Z83.3 Family history of diabetes mellitus; Z88.0 Allergy status to penicillin; Z79.899 Other long term (current) drug therapy; E87.6 Hypokalemia

== ENCOUNTER → 2024-02-04 | Outpatient (CLI) | payer BC ==
[~2024-02-04] MED LIST: IRBESARTAN75 M1 PO; SERTRALINE HYDR50 MG PO; VITAMIN D350 MC2 PO; XARE20MG PO
[2024-02-04 10:05] LABS: HEMATOCRIT 39.8 % (42.0-52.0); MEAN CELL VOLUME 89.2 fl (80.0-94.0); MEAN CORPUSCULAR HGB 28.9 pg (27.0-31.0); MEAN CORPUSCULAR HGB CONC 32.4 g/dl (33.0-37.0); MEAN PLATELET VOLUME 9.3 fl (9.6-12.3); RED BLOOD COUNT 4.46 10*6/uL (4.50-5.90); RED CELL DISTRI WIDTH 12.5 % (0-14.5); WHITE BLOOD COUNT 6.3 10*3/uL (4.8-10.8)
[2024-02-04 10:32] LABS: ALKALINE PHOSPHATASE 85 U/L (46-116); BUN 14 mg/dl (9-23); CHLORIDE 104 mmol/L (98-107); CHOLESTEROL 190 mg/dL (<200); LDL CHOLESTEROL 120 mg/dL (9-159); POTASSIUM 4.2 mmol/L (3.4-5.1); SGPT/ALT 16 U/L (5-49); TOTAL PROTEIN 8.1 gm/dL (6.0-8.0); TRIGLYCERIDES 134 mg/dl (<150)
== END | disposition home or self-care (01) ==
LOC: LAB 09:42
PROVIDERS: ATTEND Physician Assistant
DX: Z12.5 Encounter for screening for malignant neoplasm of prostate (principal); M25.559 Pain in unspecified hip; Z79.899 Other long term (current) drug therapy

== ENCOUNTER 2024-08-16 00:14 | Emergency (ER) | payer BC ==
[~2024-08-16] VITALS: Ht 182.8 cm; Wt 93.0 kg
[2024-08-16 00:54] LABS: BASO % 0.4 % (0.0-1.0); EOS # 0.1 10*3/uL (0.0-0.4); HEMATOCRIT 35.4 % (42.0-52.0); LYMPH # 2.4 10*3/uL (1.3-4.4); LYMPH % 33.1 % (27.0-41.0); MEAN CELL VOLUME 88.7 fl (80.0-94.0); MEAN CORPUSCULAR HGB 28.8 pg (27.0-31.0); MEAN CORPUSCULAR HGB CONC 32.5 g/dl (33.0-37.0); MEAN PLATELET VOLUME 8.8 fl (9.6-12.3); MONO # 0.6 10*3/uL (0.1-1.0); MONO % 7.8 % (3.0-9.0); NEUT # 4.2 10*3/uL (2.3-7.9); NEUT % 57.3 % (47.0-73.0); PLATELET COUNT AUTOMATED 255 10*3/uL (130-400); RED BLOOD COUNT 3.99 10*6/uL (4.50-5.90); RED CELL DISTRI WIDTH 12.7 % (0-14.5); WHITE BLOOD COUNT 7.3 10*3/uL (4.8-10.8)
[2024-08-16 01:45] LABS: ALKALINE PHOSPHATASE 78 U/L (46-116); BUN 20 mg/dl (9-23); CHLORIDE 105 mmol/L (98-107); POTASSIUM 3.6 mmol/L (3.4-5.1); SGPT/ALT 14 U/L (5-49); TOTAL PROTEIN 7.5 gm/dL (6.0-8.0)
== END 2024-08-16 03:50 | disposition home or self-care (01) ==
LOC: ED 00:14
PROVIDERS: Emergency Medicine
DX: R07.89 Other chest pain (principal); R06.02 Shortness of breath; R73.9 Hyperglycemia, unspecified; E83.41 Hypermagnesemia; E87.6 Hypokalemia; E83.39 Other disorders of phosphorus metabolism; D64.9 Anemia, unspecified; F32.A Depression, unspecified; I10 Essential (primary) hypertension; Z88.0 Allergy status to penicillin; Z98.890 Other specified postprocedural states